=== PATIENT | male | born 1995 | race Caucasian/White ===

== ENCOUNTER 2016-09-02 16:06 | Emergency (ER) | payer SELFPAY ==
[2016-09-02] MEDS ORDERED: LAMICTAL25 M2 PO (16:18)
== END 2016-09-02 16:41 ==
LOC: EDMED 16:06
DX: R42 Dizziness and giddiness (principal); T42.6X5A Adverse effect of other antiepileptic and sedative-hypnotic drugs, initial encounter; F31.9 Bipolar disorder, unspecified